=== PATIENT | male | born 1995 | race Caucasian/White ===

== ENCOUNTER 2017-07-14 02:37 | Emergency (ER) | payer BC, SELFPAY ==
[2017-07-14 02:38] VITALS: BP 158/76; PULSE 107; RESP 24; TEMP 36.8; O2SAT 100; BMI 27.6
--- NOTE | 2017-07-14 02:58 | RAD_ITS ---
STUDY: X-RAY - LEFT KNEE REASON FOR EXAM: Male, 22 years old. wrestling with friend and now having knee pain, swelling, attention left patella TECHNIQUE: 3 view(s) of the knee. COMPARISON: None. FINDINGS: Normal visualized distal femur. Normal visualized proximal tibia and fibula. Normal proximal tibiofibular articulation. Normal medial femorotibial compartment. Normal lateral femorotibial compartment. There is lateral dislocation of the patella. The soft tissue structures are unremarkable. RAD/Knee 3 Views IMPRESSION: There is lateral dislocation of the patella. Electronically Signed: Manpreet Cary MD at 3:46 EDT Tel , Service support ,
[2017-07-14] MEDS: oxyCODONE 5 MG Tablet 10 MG PO (03:04)
[2017-07-14 03:05] VITALS: BP 130/68; PULSE 96; RESP 16; O2SAT 98
--- NOTE | 2017-07-14 03:56 | ED.VISSUMM ---
- ER Visit Summary Date of Service: 07/14/17 Chief Complaint: [] Left knee pain History of Present Illness: The patient is a 22 M [] complaining of left knee pain and deformity just prior to arrival after wrestling with a friend. Patient reports he does have alcohol in his system. Denies drug use. Denies previous injury to the left knee or previous patellar dislocation. There is obvious deformity upon presentation. No other complaints. Patient denies paresthesias to the left lower extremity. Physical Examination: [] Afebrile, vital signs stable. 22-year-old male in no acute distress. Examination of the left knee shows obvious patellar dislocation. Patient is neurovascular intact distally to the left lower extremity. Test Results: [] 3 view left knee x-rays reveal left patellar dislocation without fracture. Emergency Department Course and Treatment: [] Patient did not want procedural sedation. He did receive 10 mg of oral oxycodone for analgesia. I manually reduced the left patella with 1 attempt successfully. Patient tolerated the procedure well. Patient was provided Blaise bandages prior to discharge. Patient was provided prescription for naproxen. Treatment Plan: [] Follow-up with PCP. NSAIDs for analgesia. Blaise bandages. Ice. Disposition: [] Discharge, stable. Impression: [] Left knee pain Patella dislocation Patella reduction by ED physician This note was generated with [employer] dictation software. It may contain incorrect words, spelling, and punctuation that were not noted in review of the chart prior to signing ED Disposition - Plan for ED Patient: Chief Complaint: Lower Extremity Injury Referrals: Isaiah Rich MD [Primary Care Provider] -
--- NOTE | 2017-07-14 03:59 | ED.DEP ---
ED Disposition - Plan for ED Patient: Disposition: Home or Assisted Living Chief Complaint: Lower Extremity Injury Instructions: ED Dislocation Patella Prescriptions: Naproxen [Naprosyn] 500 mg PO BID PRN PRN #20 tab PRN Reason: Pain Referrals: Isaiah Rich MD [Primary Care Provider] -
[2017-07-14 04:13] VITALS: BP 132/64; PULSE 100; RESP 16; O2SAT 94
== END 2017-07-14 04:15 | disposition home or self-care (01) ==
PROVIDERS: Emergency Provider Emergency Medicine; Family Provider Internal Medicine; PCP Internal Medicine
DX: S83.015A Lateral dislocation of left patella, initial encounter (principal); X58.XXXA Exposure to other specified factors, initial encounter; Y93.72 Activity, wrestling; Y92.9 Unspecified place or not applicable; Y99.9 Unspecified external cause status; Z72.0 Tobacco use
CPT/HCPCS: 27560; 73562; 99283

== ENCOUNTER 2019-12-20 14:17 | Emergency (ER) | payer BC, SELFPAY ==
[2019-12-20 14:18] VITALS: BP 132/73; PULSE 102; RESP 18; TEMP 36.4; O2SAT 98; BMI 25.2
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
== END 2019-12-20 15:49 | disposition home or self-care (01) ==
PROVIDERS: Emergency Provider Physician Assistant Medical; PCP Internal Medicine
DX: S01.511A Laceration without foreign body of lip, initial encounter (principal); V89.0XXA Person injured in unspecified motor-vehicle accident, nontraffic, initial encounter; W22.8XXA Striking against or struck by other objects, initial encounter; Y93.9 Activity, unspecified; Y92.9 Unspecified place or not applicable; Y99.9 Unspecified external cause status
CPT/HCPCS: 12013; 99283

== ENCOUNTER 2020-08-22 15:13 | Emergency (ER) | payer BC, SELFPAY ==
[2020-08-22 15:14] VITALS: BP 154/79; PULSE 105; RESP 17; TEMP 37.6; O2SAT 99; BMI 23.3
--- NOTE | 2020-08-22 15:16 | EKG12_ITS ---
Test Reason : CP Blood Pressure : / mmHG Vent. Rate : 096 BPM Atrial Rate : 096 BPM P-R Int : 162 ms QRS Dur : 096 ms QT Int : 344 ms P-R-T Axes : 063 068 003 degrees QTc Int : 434 ms Sinus rhythm with marked sinus arrhythmia Right atrial enlargement Possible Nonspecific T wave abnormality Abnormal ECG Confirmed by JUNIOR WHITE, JOCELYN ([id number]), online editor CONSTANCE MERINO ([id number]) on 08/24/2020 8:17:54 AM Referred By: ZULEIKA Confirmed By:JOCELYN PACHECO MD
[2020-08-22 15:18] VITALS: O2SAT 100
--- NOTE | 2020-08-22 15:19 | EDS_ITS ---
HPI History of Present Illness Chief Complaint: Chest Pain Informant: patient Onset/Context/Timing Onset: Yesterday Activity at onset: gradual Timing: Intermittent Quality: Positive for Pressure and Tightness Location: Substernal, Left Parasternal and Left Chest Current Severity: Moderate Maximum Severity: Moderate Worsened By: Coughing Relieved By: Nothing Associated Symptoms: Positive for Dyspnea and Cough; Negative for Nausea, Vomiting and Diaphoresis Narrative Narrative: Patient is a healthy 25-year-old male who presents to the emergency department chest pain or shortness of breath. He states his been going on for about 24 hours. He states that he would come in waves. He states that he feels his pulse in his neck. He also had tremulousness in both legs. He states he is also feeling he was having squeezing in his arm. He has no history of coronary vascular disease. He does not smoke. He denies any pleuritic pain. He does not feel like he had fever or chills. He had a scant cough that has been nonproductive. He initially went to urgent care and was sent here for further evaluation. Prior Similar Symptoms: No Recent Illness/Hospitalization: No PFSH PFSH no medical history Home Medications naproxen 500 mg PO BID PRN PRN #20 tab 07/14/17 [Rx Last Taken Unknown] naproxen 500 mg PO BID #14 tab 08/22/20 [Rx Last Taken Unknown] Allergy/AdvReac Type Severity Reaction Status Date / Time No Known Allergies Allergy Verified 12/20/19 14:20 no significant family history no surgical history Social History Smoking Status: Light Smoker (<10/day) ROS ROS ED Constitutional Constitutional ED: Denies chills or fever(s) Eyes Eyes: Denies blurry vision or change in vision ENT ENT ED: Denies ear pain or sore throat Cardiovascular Cardiovascular: Reports chest pain Respiratory/Chest Respiratory/Chest: Reports dyspnea Gastrointestinal Gastrointestinal: Denies abdominal pain, nausea or vomiting Genitourinary Genitourinary ED: Denies dysuria or urinary frequency Musculoskeletal Musculoskeletal: Denies arthralgias or myalgias Integumentary Denies rash Neurologic Neurologic: Denies headache(s) or paresthesias Psychiatric Psychiatric: Denies anxiety or depression Endocrine Endocrinology: Denies polydipsia or polyuria Allergic/Immunologic Allergic/Immunologic ED: Denies urticaria EXAM Physical Exam Const Vital Signs: 08/22/20 15:14 08/22/20 15:18 08/22/20 16:02 Temperature 99.6 F H Temperature Source Temporal Pulse Rate 105 H 107 H Respiratory Rate 17 22 H Blood Pressure 154/79 H 131/78 H Blood Pressure Mean 104 95 Pulse Ox 99 100 98 Oxygen Delivery Method Room Air Room Air Room Air Positive well nourished and well developed General Appearance ED: well developed HEENT Reports normocephalic, head/scalp atraumatic and moist mucous membranes Eyes PERRL and EOMs intact bilaterally Neck no lymphadenopathy and supple General: Negative for tenderness Chest Wall inspection of chest normal Resp normal respiratory effort and clear to auscultation bilaterally Cardio regular rate, regular rhythm and no murmurs GI normal to inspection, nondistended, normoactive bowel sounds Palpation: Negative for tender, guarding or rebound tenderness present Back/Spine no CVA tenderness Cervical Spine: Negative for cervical spine tenderness Thoracic Spine / Upper Back: Negative for thoracic spinal tenderness Extremity normal to inspection General Extremety ED: Negative for tenderness Neuro oriented x3 and CN's II-XII intact bilaterally Neuro Narrative: No focal deficits appreciated. Sensorium / Orientation: alert Psych mental status grossly normal Skin no rashes or lesions noted, no wounds and skin turgor normal MDM MDM MDM Narrative Medical decision making narrative: Patient presents with atypical chest pain. He was however tachycardic. He has had a scant cough but no fever. EKG was obtained on arrival. It was sinus rhythm with a few PACs. Metabolic work-up was pursued. Given his tachycardia, I did obtain a D-dimer. This was negative. EKG showed no evidence of acute ischemia. Chest x-ray reviewed by both myself and the radiologist shows no acute infiltrate, pneumothorax, or other dangerous process. Reevaluation, the patient is resting comfortably. He has a normal work-up. I am going to treat him with anti-inflammatories and have him follow- up with his primary care. Impression 1. Atypical chest pain Lab Data Attestation: I reviewed the patient's lab results. Labs: Laboratory Results - last 24 hr 08/22/20 08/22/20 08/22/20 15:15 15:15 15:15 WBC 12.7 H RBC 5.49 Hgb 15.8 Hct 46.8 MCV 85.2 MCH 28.8 MCHC 33.8 RDW Std Deviation 35.6 RDW Coeff of Sharita 11.6 Plt Count 281 MPV 9.6 Immature Gran % (Auto) 0.500 Neut % (Auto) 90.5 H Lymph % (Auto) 7.1 L [place] % (Auto) 1.7 Eos % (Auto) 0.1 Baso % (Auto) 0.1 Absolute Neuts (auto) 11.5 H Absolute Lymphs (auto) 0.90 Nucleated RBC % 0 D-Dimer Quant (PE/DVT) <= 0.27 Sodium 138 Potassium 3.9 Chloride 103 Carbon Dioxide 30.0 Anion Gap 5 BUN 13 Creatinine 1.03 Estim Creat Clear Calc 104.28 Est GFR (MDRD) Af Amer 115 Est GFR (MDRD) Non-Af 95 BUN/Creatinine Ratio 12.6 Glucose 169 H Calcium 10.0 Troponin I < 0.015 Radiography Chest X-Ray - ED: 1 View, Read by ED Physician, Normal, Heart, Lungs, Mediastinum, Bony Structures and No Acute Disease Diagnostic Testing: Radiology Impression Chest X-Ray 08/22/20 15:42 IMPRESSION: Normal x-ray examination of the chest. Electronically Signed: Jamar Rivero MD at 15:55 EDT , Service support , EKG Initial EKG: Attestation: I personally reviewed and interpreted this EKG as follows: Interpretation: Sinus Rhythm and No Acute Injury Pattern Prior: No Prior Discharge Plan Triage Chief Complaint: Chest Pain ED Provider: Lenard Dan Dx/Rx/DC Orders Instructions: ED Chest Wall Pain, Costochondritis Prescriptions: New naproxen 500 MG tablet 500 mg PO BID Qty: 14 RF: 0 No Action naproxen 500 MG tablet 500 mg PO BID PRN PRN (Reason: Pain) Qty: 20 RF: 0 Primary Care Provider: Isaiah Rich Referrals: Isaiah Rich MD [Primary Care Provider] -
--- NOTE | 2020-08-22 15:26 | ED.RN ---
PHARMACY CALLED TO VERIFY ASA AND FLUIDS.
[2020-08-22] MEDS: Aspirin 81 MG TAB.CHEW 324 MG PO (15:28)
[2020-08-22] MEDS: 0.9% Normal Saline 1,000 ML 150 ML IV (15:28)
[2020-08-22 15:36] LABS: Absolute Neutrophil Count 11.5 X10^3/uL (2.0-7.7); Basophil# 0.01 X10^3/uL; Basophil% 0.1 % (0-1); Eosinophil# 0.01 X10^3/uL; Eosinophils% 0.1 % (0-5); Hematocrit 46.8 % (40-54); Hemoglobin 15.8 g/dL (13.0-16.5); Lymphocyte % 7.1 % (19-41); Mean Corp Hgb Conc 33.8 g/dL (32-36); Mean Corpuscular Hgb 28.8 pg (27.0-32.0); Mean Corpuscular Volume 85.2 fL (80-94); Mean Platelet Vol. 9.6 fl (6.2-12.0); Monocyte# 0.22 X10^3/uL; Monocyte% 1.7 % (0-10); NRBC Flagged by Analyzer 0 % (0-5); Neutrophil # 11.54 X10^3/uL (2.7-7.7); Neutrophil % 90.5 % (47-70); Platelet Count 281 K/mm3 (150-450); RBC Distribution Width CV 11.6 % (11.6-14.6); RBC Distribution Width SD 35.6 fl (35.1-43.9); Red Blood Count 5.49 M/mm3 (4.6-6.2); White Blood Count 12.7 K/mm3 (4.4-11.0)
--- NOTE | 2020-08-22 15:42 | RAD_ITS ---
STUDY: X-RAY CHEST REASON FOR EXAM: Male, 25 years old. Chest pain . Chest tightness. TECHNIQUE: Single AP portable view of the chest. COMPARISON: None. FINDINGS: EKG electrodes are seen. The lungs are clear and expanded. There is no demonstrated pleural abnormality. Normal size heart. Normal mediastinum and sandra. Normal visualized pulmonary arteries. Normal visualized aortic arch and descending thoracic aorta. Normal visualized thoracic spine. Normal visualized ribs, clavicles, and shoulders. There is no demonstrated abnormality of the visualized soft tissue structures of the upper abdomen. RAD/Chest 1 View (Portable) IMPRESSION: Normal x-ray examination of the chest. Electronically Signed: Jamar Rivero MD at 15:55 EDT , Service support ,
[2020-08-22 15:54] LABS: D-Dimer Quantitative (DVT/PE) <= 0.27 FEU/ug/m (0.27-0.49)
[2020-08-22 16:02] VITALS: BP 131/78; PULSE 107; RESP 22; O2SAT 98
[2020-08-22 16:04] LABS: Anion Gap 5 (5-15); BUN 13 mg/dL (7-18); BUN/Creat Ratio 12.6 RATIO (10-20); Chloride 103 mmol/L (98-107); Creatinine, Serum 1.03 mg/dL (0.70-1.30); EST Glomerular Filtration Rate 95 mL/min (>60); Est Glom Filt Rate - Afr Amer 115 mL/min (>60); Estimated Creatinine Clearance 104.28 ml/min; Glucose 169 mg/dL (74-106); Potassium 3.9 mmol/L (3.5-5.1); Sodium Level 138 mmol/L (136-145)
[2020-08-22 16:42] VITALS: BP 118/71; PULSE 86; RESP 16; O2SAT 98
== END 2020-08-22 16:45 | disposition home or self-care (01) ==
LOC: ED 15:52
PROVIDERS: Emergency Provider Emergency Medicine; PCP Internal Medicine
DX: R07.89 Other chest pain (principal)
CPT/HCPCS: 71045; 80048; 84484; 85025; 85379; 93005; 96360; 99285; J7030; A4216

== ENCOUNTER → 2024-03-30 | Outpatient (CLI) | payer OTHER, SELFPAY ==
[2024-03-30 10:03] LABS: Absolute Lymphocyte Count 1.61 X10^3/uL (0.83-4.51); Absolute Neutrophil Count 2.3 X10^3/uL (2.0-7.7); Basophil# 0.03 X10^3/uL; Basophil% 0.7 % (0-1); Eosinophil# 0.15 X10^3/uL; Eosinophils% 3.4 % (0-5); Hematocrit 40.4 % (40-54); Hemoglobin 13.6 g/dL (13.0-16.5); Lymphocyte # 1.61 X10^3/ul (0.83-4.51); Lymphocyte % 36.1 % (19-41); Mean Corp Hgb Conc 33.7 g/dL (32-36); Mean Corpuscular Hgb 29.8 pg (27.0-32.0); Mean Corpuscular Volume 88.6 fL (80-94); Mean Platelet Vol. 9.8 fl (6.2-12.0); Monocyte# 0.32 X10^3/uL; Monocyte% 7.2 % (0-10); NRBC Flagged by Analyzer 0 % (0-5); Neutrophil # 2.34 X10^3/uL (2.7-7.7); Neutrophil % 52.4 % (47-70); Platelet Count 182 K/mm3 (150-450); RBC Distribution Width CV 11.9 % (11.6-14.6); RBC Distribution Width SD 38.5 fl (35.1-43.9); Red Blood Count 4.56 M/mm3 (4.6-6.2); White Blood Count 4.5 K/mm3 (4.4-11.0)
[2024-03-30 10:56] LABS: ALB/GLOB Ratio 1.1 RATIO (0.9-2.4); AST(SGOT) 22 U/L (15-37); Alanine Aminotransfer ALT/SGPT 37 U/L (16-61); Albumin, Serum 3.7 g/dL (3.2-5.0); Alkaline Phosphatase 55 U/L (45-117); Anion Gap 3 (5-15); BUN 14 mg/dL (7-18); BUN/Creat Ratio 16.5 RATIO (10-20); Calcium,Total 9.5 mg/dL (8.5-10.1); Chloride 105 mmol/L (98-107); Cholesterol 145 mg/dL (200); Creatinine, Serum 0.85 mg/dL (0.70-1.30); EST Glomerular Filtration Rate 115 mL/min (>60); Est Glom Filt Rate - Afr Amer 139 mL/min (>60); Globulin 3.4 g/dL (2.2-4.2); Glucose 73 mg/dL (74-106); High Density Lipoprotein 57 mg/dL; Potassium 4.2 mmol/L (3.5-5.1); Protein, Total 7.1 g/dL (6.4-8.2); Sodium Level 139 mmol/L (136-145); Triglycerides 69 mg/dL; Very Low Density Lipoprotein 14 mg/dL (5-40)
== END | disposition home or self-care (01) ==
LOC: MFPLAB 08:38
PROVIDERS: PCP Family Medicine; Referring Provider Family Medicine; Visit Provider Family Medicine
DX: Z00.00 Encounter for general adult medical examination without abnormal findings (principal); Z13.220 Encounter for screening for lipoid disorders; Z13.1 Encounter for screening for diabetes mellitus
CPT/HCPCS: 36415; 80053; 80061; 85025